=== PATIENT | male | born 1975 | race Two or more races ===

== ENCOUNTER 2022-10-31 19:33 | Emergency (ER) | payer BC, OTHER ==
[~2022-10-31] VITALS: Ht 180.3 cm; Wt 96.3 kg
[2022-10-31] MEDS ORDERED: TETANUS-DIPTH-ACEL PERTUSSIS 0.5ML SYR Tdap IM ONE (19:45)
[2022-10-31] MEDS ORDERED: NEOMYCIN-BACITRACIN-POLYM UNITDOSE PKG TOP OINT TOP ONE (19:45)
[2022-10-31] MEDS ORDERED: CEPH500C PO ×3 (19:51→20:26)
[2022-10-31] MEDS ORDERED: IBUP-1454 PO ×3 (19:51→20:26)
[2022-10-31] MEDS ORDERED: AZIT4SOL RIGHTEYE ×3 (20:16→20:26)
[2022-10-31 20:28] VITALS: BP 133/76; PULSE 69; RESP 18; TEMP 97.4; O2SAT 96
[2022-10-31] MEDS ORDERED: TETRACAINE HCL 0.5% OPTH(EYE) SOLN 4ML EACHEYE ONE (20:30)
== END 2022-10-31 20:30 | disposition home or self-care (01) ==
LOC: ER 19:33
DX: S61.011A Laceration without foreign body of right thumb without damage to nail, initial encounter (principal); W27.0XXA Contact with workbench tool, initial encounter; Y93.89 Activity, other specified; Y92.89 Other specified places as the place of occurrence of the external cause; Y99.8 Other external cause status
CPT/HCPCS: 90471; 90715